=== PATIENT | female | born 1945 | race African-American/Black ===

== ENCOUNTER → 2017-02-17 | Outpatient (CLI) | payer OTHER ==
[~2017-02-17] MED LIST: ALBUTEROL17 GM INH; ASPIRIN PO; ATENOLOL PO; BREO ELLIPTA 11 EACH INH; HYDROCHLOROTHIA25 MG PO; ISOSORBIDE MONO30 M1 PO; NEXIUM PO; NORVASC PO; OMEPRAZOLE20 M2 PO; OMEPRAZOLE40 M1 PO; POTASSIUM CHLO10 ME1 PO; PRAVASTATIN SOD40 MG PO; PREMARIN PO; PROVENTIL INH0.5 ML HHN; SPIRIVA18 MCG INH; ZYRTEC10 M2 PO
--- NOTE | ~2017-02-17 | CT57 ---
[facility] A Service of [facility] RADIOLOGY TEXT RESULTS PATIENT: PADMINI HERRERA [facility] UNIT #: [id number] AGE: [address]: Nia Cleveland SEX: F ORDER DR: [id number] [place] [id number] [facility]. [place], [place] [address] [id number] O MR#: [id number] Acc #: [id number] NAME: PADMINI HERRERA : 1945 SEX: F STUDY DATE/TIME: 02/17/2017 10:48 UNIT: [facility] ROOM: STUDY DESCRIPTION: CT Chest Wo Cont Attending Physician: Nia Cleveland A.P.R.N. Referring Physician: Nia Cleveland A.P.R.N. Ordering Physician: Nia Cleveland A.P.R.N. Primary Care Physician: Shanna Judd A.P.R.N. MEDICAL IMAGING REPORT This report is preliminary unless electronic signature is present EXAM CT chest INDICATION Pulmonary nodules. Restaging. Shortness of air. TECHNIQUE CT of the thorax without contrast. Coronal and sagittal reconstructions were obtained. This CT exam was performed with one or more of the following radiation dose reduction techniques: automatic exposure control, adjustment of mA and/or kV according to patient size, and iterative reconstruction. COMPARISON CT thorax dated 08/02/2016, 02/26/2016 and 08/26/2015 FINDINGS The 5 mm spiculated nodule described as new on the 08/02/2016 exam has resolved. A 7.0 mm linear nodule in the left lower lobe is unchanged. There is a new round 0.8 x 0.7 x 0.6 cm pulmonary nodule in the left upper lobe on image 60. This should be closely followed. The central airways are patent. No pathologically enlarged mediastinal or hilar lymph nodes. No pericardial or pleural effusion. No acute osseous abnormalities. IMPRESSION 1. A 5.0 mm pulmonary nodule in the right lower lobe has resolved. [facility] A Service of [facility] RADIOLOGY TEXT RESULTS PATIENT: PADMINI HERRERA [facility] UNIT #: [id number] AGE: [address]: Nia Cleveland SEX: F ORDER DR: 2. New 0.8 cm pulmonary nodule in the left upper lobe. This may simply reflect inflammatory/infectious nodule, however, given its size and development, it should be closely followed. A 3-[address] scan would be appropriate. 3. 7.0 mm somewhat linear nodule in the left lower lobe is unchanged from at least 02/26/2016 and is likely benign. 4. Emphysema. Dictated by... Gorge Landeros M.D. THIS IS AN ELECTRONICALLY VERIFIED REPORT Gorge Landeros M.D. at 02/17/2017 3:13 PM Krystian TD: 02/17/2017 12:25 JOB #: [id number] MEDICAL IMAGING REPORT Page 1 of 1 COPY
== END | disposition home or self-care (01) ==
LOC: CCAT 10:21
DX: R91.8 Other nonspecific abnormal finding of lung field (principal); J43.9 Emphysema, unspecified
CPT/HCPCS: 71250

== ENCOUNTER → 2017-02-22 | Day surgery (SDC) | payer OTHER ==
--- NOTE | ~2017-02-22 | OR ---
Unit #: [id number] #: [id number] Patient: PADMINI HERRERA [id number] [address] [place], [place] [address] [id number] O MR#: [id number] NAME: PADMINI HERRERA ROOM: Date of Procedure: 02/22/2017 Admission Date: 02/22/2017 Surgeon: Clovis Herrera M.D. : 1945 Attending Physician: Clovis Herrera M.D. Referring Physician: Clovis Herrera M.D. Primary Care Physician: Shanna Judd A.P.R.N. OPERATIVE REPORT PROCEDURE PERFORMED Esophagogastroduodenoscopy with biopsy. INDICATIONS FOR PROCEDURE The patient with chronic dyspepsia, GERD symptoms undergoing evaluation with upper endoscopy. MEDICATIONS Monitored anesthesia. POSTOPERATIVE FINDINGS 1. Mild esophagitis. 2. Mild gastritis. Biopsies taken. 3. Normal duodenum and distal duodenum. 4. No Singh esophagus was seen. PLAN 1. Continue PPI therapy and reflux precautions. 2. Follow up on pathology report. DESCRIPTION OF PROCEDURE The patient was explained of the procedure, risks, and benefits along with risks and benefits of anesthesia. She was brought to the endoscopy room. Propofol anesthesia was given. Bite block was placed. The scope was passed down the mouth and esophagus, stomach, duodenum, and distal duodenum. Findings as described. Biopsies taken. Gently, the scope was pulled out. She tolerated it well. Dictated by... Radha Mckinney/louis TD: 03/10/2017 01:53 JOB #: [id number] Unit #: [id number] #: [id number] Patient: PADMINI HERRERA OPERATIVE REPORT Page 1 of 1 X Clovis Herrera MD PROCEDURE OPERATIVE NOTE
== END | disposition home or self-care (01) ==
LOC: COPS 07:22
DX: K21.9 Gastro-esophageal reflux disease without esophagitis (principal); K29.50 Unspecified chronic gastritis without bleeding; K20.9 Esophagitis, unspecified; Z88.2 Allergy status to sulfonamides; Z91.041 Radiographic dye allergy status; F17.200 Nicotine dependence, unspecified, uncomplicated; I25.10 Atherosclerotic heart disease of native coronary artery without angina pectoris; I10 Essential (primary) hypertension; E78.5 Hyperlipidemia, unspecified; J44.9 Chronic obstructive pulmonary disease, unspecified
CPT/HCPCS: 88305; 88312

== ENCOUNTER → 2017-04-17 | Outpatient (CLI) | payer OTHER ==
--- NOTE | ~2017-04-17 | CT57 ---
[facility] A Service of [facility] RADIOLOGY TEXT RESULTS PATIENT: PADMINI HERRERA [facility] UNIT #: [id number] AGE: [address]: Nia Cleveland SEX: F ORDER DR: [id number] [facility] [address] [place], [place] [address] [id number] O MR#: [id number] Acc #: [id number] NAME: PADMINI HERRERA : 1945 SEX: F STUDY DATE/TIME: 04/17/2017 8:50 UNIT: [facility] ROOM: STUDY DESCRIPTION: CT Chest Wo Cont Attending Physician: Nia Cleveland A.P.R.N. Referring Physician: Nia Cleveland A.P.R.N. Ordering Physician: Nia Cleveland A.P.R.N. Primary Care Physician: Shanna Judd A.P.R.N. MEDICAL IMAGING REPORT This report is preliminary unless electronic signature is present EXAM CT chest without contrast INDICATIONS Follow up pulmonary nodule. PROCEDURE Unenhanced CT of the chest. The CT exam was performed with one or more of the following radiation dose reduction techniques: automatic exposure control, adjustment of mA and/or kV according to patient size, and iterative reconstruction. COMPARISON: 02/17/2017 FINDINGS Centrilobular emphysema. 6 mm nodule posterolateral left upper lobe is smaller than on the previous study and is less nodular. No new nodules. No new dense consolidation, pleural fluid or pneumothorax. 2.4 cm low attenuation right thyroid lobe nodule is unchanged. No adenopathy. No acute findings in the included upper abdomen. Hepatic cysts are unchanged. No aggressive appearing bone lesion. IMPRESSION 1. Previously demonstrated nodule in the left upper lobe is smaller and less nodular suggesting that it represented an infectious or inflammatory nodule. It has not completely resolved. Consider followup chest CT in approximately 3-6 months to confirm complete resolution. 2. No new nodule. [facility] A Service of [facility] RADIOLOGY TEXT RESULTS PATIENT: PADMINI HERRERA LOCATION: [facility] : 45 UNIT #: [id number] AGE: [address]: Nia Cleveland SEX: F ORDER DR: 3. Emphysema. Dictated by... Jeramy Yoon M.D. THIS IS AN ELECTRONICALLY VERIFIED REPORT Jeramy Yoon M.D. at 04/19/2017 2:32 PM HIRA/elida TD: 04/17/2017 10:51 JOB #: [id number] MEDICAL IMAGING REPORT Page 1 of 1 COPY
== END | disposition home or self-care (01) ==
LOC: CCAT 08:00
DX: R91.1 Solitary pulmonary nodule (principal); R06.00 Dyspnea, unspecified; J43.9 Emphysema, unspecified
CPT/HCPCS: 71250

== ENCOUNTER 2017-04-29 10:41 | Emergency (ER) | payer OTHER ==
--- NOTE | ~2017-04-29 | US85 ---
[facility] A Service of [facility] RADIOLOGY TEXT RESULTS PATIENT: PADMINI HERRERA LOCATION: [facility] : 45 UNIT #: [id number] AGE: [address]: SHERICE DE LA VEGA SEX: F ORDER DR: [id number] [facility] [address] [facility]. [place], [place] [address] [id number] E MR#: [id number] Acc #: [id number] NAME: PADMINI HERRERA : 1945 SEX: F STUDY DATE/TIME: 04/29/2017 12:08 UNIT: [facility] ROOM: STUDY DESCRIPTION: [facility] Attending Physician: Sherice De La Vega A.P.R.N. Ordering Physician: Sherice De La Vega A.P.R.N. MEDICAL IMAGING REPORT This report is preliminary unless electronic signature is present EXAM Right lower extremity venous ultrasound HISTORY Right lower extremity and calf pain for 6 weeks. No injury. TECHNIQUE Ultrasound examination of the right lower extremity veins was performed with franks-scale, color Doppler and spectral Doppler. FINDINGS There is no DVT or SVT. There is a Haley's cyst in the popliteal fossa measuring 1.3 cm x 4 cm in AP and transverse dimensions and 5 cm in length. This contains a small amount of debris. IMPRESSION 1. No DVT or SVT in the right lower extremity. 2. Haley's cyst in the right popliteal fossa measuring close to 5 cm in maximal dimension containing a small amount of debris. Dictated by... Cameron Montana M.D. THIS IS AN ELECTRONICALLY VERIFIED REPORT Cameron Montana M.D. at 04/29/2017 10:47 PM DFL/pcl TD: 04/29/2017 14:25 JOB #: [id number] MEDICAL IMAGING REPORT [facility] A Service [facility] RADIOLOGY TEXT RESULTS PATIENT: PADMINI HERRERA LOCATION: [facility] : 45 UNIT #: [id number] AGE: [address]: SHERICE DE LA EVGA SEX: F ORDER DR: Page 1 of 1 COPY
== END 2017-04-29 13:55 | disposition home or self-care (01) ==
LOC: CFTX 10:41 → CED 10:41 → CFTX 11:47
DX: M71.21 Synovial cyst of popliteal space [Baker], right knee (principal); I10 Essential (primary) hypertension; F17.200 Nicotine dependence, unspecified, uncomplicated; E11.40 Type 2 diabetes mellitus with diabetic neuropathy, unspecified; Z90.710 Acquired absence of both cervix and uterus; Z88.2 Allergy status to sulfonamides; Z91.041 Radiographic dye allergy status; Z88.8 Allergy status to other drugs, medicaments and biological substances
CPT/HCPCS: 93971; 99283